=== PATIENT | female | born 1990 | race Caucasian/White ===

== ENCOUNTER 2023-09-30 16:23 | Emergency (ER) | payer OTHER ==
[~2023-09-30] VITALS: Ht 172.7 cm; Wt 60.0 kg
[2023-09-30 16:31] VITALS: O2SAT 99
[2023-09-30] MEDS ORDERED: ALPR0.25 MT (17:24)
[2023-09-30 18:00] VITALS: BP 130/67; PULSE 75; RESP 17; TEMP 98
== END 2023-09-30 18:05 | disposition home or self-care (01) ==
LOC: ER 16:23
DX: F41.9 Anxiety disorder, unspecified (principal)
CPT/HCPCS: 99281; 99283